=== PATIENT | male | born 1965 | race Caucasian/White ===

== ENCOUNTER 2020-09-13 22:58 | Emergency (ER) | payer SELFPAY ==
[~2020-09-13] VITALS: Ht 167.6 cm; Wt 80.0 kg
--- NOTE | 2020-09-14 00:07 | NUR ---
Labs drawn from triage, urine sent from triage, pt went to CT and is now back in lobby. NAD, no change in assessment.
[2020-09-14 00:11] LABS: BASOPHILS % (AUTO) 1 % (0-1); EOSINOPHILS % (AUTO) 1 % (1-7); LYMPHOCYTES % (AUTO) 10 % (22-44); MEAN CORPUSCULAR HEMOGLOBIN 28.8 pg (27.5-34.5); MEAN CORPUSCULAR HGB CONC 34.3 g/dL (33.2-36.2); MEAN PLATELET VOLUME 9.6 fL (7.4-10.4); MONOCYTES % (AUTO) 7 % (2-9); NEUTROPHILS % (AUTO) 82 % (42-75); PLATELET COUNT 163 x10^3/uL (130-400); RED CELL DISTRIBUTION WIDTH 15.4 % (9.4-14.8)
[2020-09-14 00:16] LABS: ANION GAP 5 mmol/L (5-15); CALCIUM 9.8 mg/dL (8.5-10.1); CHLORIDE 107 mmol/L (98-107); CREATININE 1.46 mg/dL (0.7-1.3)
[2020-09-14 00:16] LABS: MICROSCOPIC INDICATED
[2020-09-14 00:17] LABS: ALANINE AMINOTRANSFERASE 46 U/L (12-78); ALBUMIN 4.2 g/dL (3.4-5.0)
[2020-09-14 00:19] LABS: ALKALINE PHOSPHATASE 115 U/L (45-117); BILIRUBIN,TOTAL 0.9 mg/dL (0.2-1.0); TOTAL PROTEIN 7.4 g/dL (6.4-8.2)
--- NOTE | 2020-09-14 00:20 | NUR ---
PT TO ROOM FROM TRIAGE
--- NOTE | 2020-09-14 00:48 | NUR ---
CC OF RIGHT FLANK PAIN AND NAUSEA FOR 2 DAYS. PT STATES "I HATE HOSPITALS SO MY OTHER PROBLEMS ARE JUST BECAUSE I HATE COMING IN. BUT I THINK I HAVE AN ABSCESS, ALSO PAIN WITH THAT OVER LAST 2 DAYS". ALSO C/O "IM PRETTY SURE I HAVE A HERNIA" FOR 3 YEARS.
--- NOTE | 2020-09-14 01:49 | NUR ---
PT UP TO RESTROOM, HAS STEADY GAIT. ALSO REQUESTING PAIN MEDICATIONS, PROVIDER AWARE.
--- NOTE | 2020-09-14 01:50 | NUR ---
BEDSIDE REPORT FROM NITIN RN ERP TO BEDSIDE TO ASSESS/REVIEW POC
--- NOTE | 2020-09-14 02:01 | NUR ---
REPORT GIVEN TO EILEEN PAGE.
[2020-09-14] MEDS ORDERED: OXYcodone/APAP 5/325MG TABLET PO ONE (02:30)
[2020-09-14] MEDS ORDERED: OXYcodone/APAP 5/325MG TABLET ONE (02:37)
[2020-09-14 03:07] VITALS: BP 128/79
--- NOTE | 2020-09-14 03:10 | NUR ---
PAIN IMPROVED TO 3/10 REVIEWED FOLLOW UP POC-TEACH BACK SUCCESSFUL
== END 2020-09-14 03:14 | disposition home or self-care (01) ==
LOC: ED 09-14 01:37
DX: K40.90 Unilateral inguinal hernia, without obstruction or gangrene, not specified as recurrent (principal); N20.2 Calculus of kidney with calculus of ureter; K08.89 Other specified disorders of teeth and supporting structures; F17.200 Nicotine dependence, unspecified, uncomplicated
CPT/HCPCS: 36415; 74176; 80053; 81001; 85025; 87086; 99284